=== PATIENT | female | born 1975 | race Caucasian/White ===

== ENCOUNTER 2017-03-08 09:41 | Emergency (ER) | payer MEDICAID ==
[2017-03-08 09:48] VITALS: BP 92/63; PULSE 72; RESP 16; TEMP 97.7; O2SAT 99
--- NOTE | 2017-03-08 09:59 | EDPHY ---
H & P Time Seen by Provider: 03/08/17 09:50 HPI/ROS: Chief complaint. Back pain HPI. 42-year-old female injured her low back doing Pilates exercises 2 weeks ago. She has continued to have some low back pain. Initially she felt it was a rip or a pull. She then reaggravated at about 1 week ago when she lunged forward to keep a friend from tripping and falling. She has seen her PCP for this. She has been using ibuprofen. She really has minimal symptoms when she is standing but is worse with twisting and bending. She feels that gradually her tightness is worsening and she is getting some spasms to her low back and pelvic area. She has no radiation to her legs. No bowel or bladder symptoms. No leg weakness. No similar symptoms previously. ROS Constitutional. no fever/chills, no weakness Eyes. no problems with vision ENT. no sore throat, no nasal drainage Cardiovascular. no chest pain Respiratory. no shortness of breath, no cough Abdominal. no abdominal pain, no nausea/vomiting, no diarrhea . no problems urinating MS. Low back pain Skin. no rash Lymph. no swollen glands Neuro. no headache, no dizziness, no difficulty walking or with speech Past Medical/Surgical History: Anorexia Social History: Single, nonsmoker, no alcohol Smoking Status: Never smoked Physical Exam: General Appearance: Alert pleasant well-developed female mild distress vital signs stable Eyes: Pupils equal and round no pallor or injection. ENT, Mouth: Mucous membranes are moist. Respiratory: There are no retractions, lungs are clear to auscultation. Cardiovascular: Regular rate and rhythm. Gastrointestinal: Abdomen is soft and nontender, no masses, bowel sounds normal. Neurological: Awake and alert, sensory and motor exams grossly normal. Straight leg raising positive at 30 degrees on each leg. Reflexes are symmetrical. Great toe strength is normal. Normal sensation Skin: Warm and dry, no rashes. Musculoskeletal: Neck is supple nontender. Diffuse tenderness across the mid lumbar area. No particular tenderness over the lumbar spine. Extremities symmetrical, full range of motion. Psychiatric: Patient is oriented X 3, there is no agitation. Constitutional: Initial Vital Signs Temperature (C) 36.5 C 03/08/17 09:45 Heart Rate 72 03/08/17 09:45 Respiratory Rate 16 03/08/17 09:45 Blood Pressure 92/63 L 03/08/17 09:45 O2 Sat (%) 99 03/08/17 09:45 O2 Delivery Mode Room Air Allergies/Adverse Reactions: Penicillins Allergy (Verified 03/08/17 09:43) Sulfa (Sulfonamide Antibiotics) Allergy (Verified 03/08/17 09:43) Home Medications: Medication Instructions Recorded CYCLOBENZAPRINE HCL [Flexeril] 5 mg PO TIDPRN PRN #14 tab 03/08/17 Klonomaricruz 03/08/17 Medical Decision Making ED Course/Re-evaluation: The patient and I discussed physical exam, treatment plan including criteria for return importance of follow-up and further evaluation. She expresses understanding and agreement Differential Diagnosis: This appears to be muscular in etiology. I considered fracture, dislocation. She has however had no trauma other than stretching as a cause. I think it unlikely she has a fracture. I have also considered herniated disc though she has no radicular or bowel or bladder symptoms. Departure - Departure Disposition: Home, Routine, Self-Care Clinical Impression: Low back pain Qualifiers: Chronicity: acute Back pain laterality: bilateral Sciatica presence: without sciatica Qualified Code(s): M54.5 - Low back pain Condition: Good Instructions: Low Back Strain (ED), Lower Back Exercises (ED) Additional Instructions: Ibuprofen 600 mg every 6 hours for discomfort. Flexeril as muscle relaxer. May try lidocaine or capsascian patches from the grocery store to help with low back pain. Gentle stretching and activity. Call [facility] to see if you may be seen as a patient and otherwise they may give you a recommendation of physical therapy that takes Medicaid-- . Return for leg weakness, bowel or bladder symptoms. Recheck in 3-4 days if not improving Referrals: Gabriella Nevarez MD [Primary Care Provider] - 3-4 days, if not improved Prescriptions: CYCLOBENZAPRINE HCL [Flexeril] 5 mg PO TIDPRN PRN #14 tab PRN Reason: Spasms
== END 2017-03-08 10:32 | disposition home or self-care (01) ==
DX: S39.92XA Unspecified injury of lower back, initial encounter (principal); W01.0XXA Fall on same level from slipping, tripping and stumbling without subsequent striking against object, initial encounter

== ENCOUNTER 2017-04-02 15:40 | Emergency (ER) | payer MEDICAID ==
[2017-04-02 15:46] VITALS: O2SAT 98
--- NOTE | 2017-04-02 15:57 | EDPHY ---
H & P Stated Complaint: seeing pt for back pain/not better Time Seen by Provider: 04/02/17 15:57 - Personal History LMP (Females 10-55): 15-21 Days Ago Current Tetanus/Diphtheria Vaccine: Yes - Medical/Surgical History Hx Asthma: No Hx Chronic Respiratory Disease: No Hx Diabetes: No Hx Cardiac Disease: No Hx Renal Disease: No Hx Cirrhosis: No Hx Alcoholism: No Hx HIV/AIDS: No Hx Splenectomy or Spleen Trauma: No Other PMH: recovering from anorexia. t11 old injury - Social History Smoking Status: Never smoked Constitutional: Initial Vital Signs Temperature (C) 36.7 C 04/02/17 15:43 Heart Rate 74 04/02/17 15:43 Respiratory Rate 17 04/02/17 15:43 Blood Pressure 93/59 L 04/02/17 15:43 O2 Sat (%) 98 04/02/17 15:43 O2 Delivery Mode Room Air Allergies/Adverse Reactions: Penicillins Allergy (Verified 04/02/17 15:42) Sulfa (Sulfonamide Antibiotics) Allergy (Verified 04/02/17 15:42) Home Medications: Medication Instructions Recorded Klonopin 03/08/17 Hydrocodone/APAP 5/325 [[place] 1 - 2 each PO Q4-6PRN PRN #20 tab 04/02/17 5/325] Medical Decision Making - Diagnostics Imaging Results: Imaging Impressions Lumbar Spine MRI 04/02/17 16:03 Impression: Mild chronic anterior wedge compression fracture of T12. Otherwise, normal lumbar spine MRI. Results called and discussed with Shaq Thomas MD on April 02, 2017 at 1744 hours. Pelvis MRI 04/02/17 16:04 Impression: 1. Mild strain or tendinopathy left common hamstring tendon origin at the ischial tuberosity without attenuation. 2. Incidental 9 mm Bartholin's gland cyst on the right. Results called and discussed with Shaq Thomas MD on April 02, 2017 at 1752 hours. Imaging: Discussed imaging studies w/ call center receptionist Radiologist ED Course/Re-evaluation: CHIEF COMPLAINT: Back pain HISTORY OF PRESENT ILLNESS: This patient is a 42 year old female complaining of unresolved back pain secondary to a fall trail running two or three weeks ago. She states she was evaluated at that time, and has followed up with physical therapy. She states she has had several episodes of intense pain accompanied by flushed face and nausea. She states her physical therapist recommended she follow up to the emergency department should this occur again, with concern for neurologic involvement. She reports the pain is localized to her left lower back around her SI joint, radiating to her pelvic floor. She rates severity as 8/10 currently. She states she has taken her anxiety medication and Ibuprofen to control pain. She denies fever, nausea, vomiting, incontinence, or other associated symptoms. REVIEW OF SYSTEMS: A 10 point review of systems was performed and is negative with the exception of the elements mentioned in the history of present illness. PHYSICAL EXAM: HR, BP, O2 Sat, RR. Temp noted General Appearance: Alert, well hydrated, appropriate, and non-toxic appearing. Head: Atraumatic without scalp tenderness or obvious injury Eyes: Pupils equal, round, reactive to light and accommodation, EOMI, no trauma , no injection. Throat: Mucus membranes moist. Neck: Supple, nontender Respiratory: No retractions, no distress, no wheezes, and no accessory muscle use. Lungs are clear to auscultation bilaterally. Cardiovascular: Regular rate and rhythm. Good capillary refill all extremities. Gastrointestinal: Abdomen is soft, nontender, non-distended, no masses, no rebound, no guarding, no peritoneal signs. Musculoskeletal: Tenderness to left SI joint. Normal active ROM of all extremities, atraumatic. Neurological: Alert, appropriate, and interactive. The patient has normal DTRs and non-focal cranial nerves, motor, sensory, and cerebellar exam. Skin: No rashes, good turgor, no nodules on palpation. Past medical history: T11 injury. History of anorexia. Past surgical history: Noncontributory Family history: Noncontributory Social history: Lives in [place] Past medical records reviewed including emergency department visit 03/08/17 for back pain. DIFFERENTIAL DIAGNOSIS: The differential diagnosis for the patient's back pain included but was not limited to musculoskeletal pain, epidural abscess, herniated disk, spinal fracture, and intra-abdominal causes including urinary system. MEDICAL DECISION MAKING: This patient is a 42 year old female presenting with two week history of left- sided back pain. Offered pain management, patient prefers not to use narcotic pain medications. Plan for non-contrast MRI lumbosacral area to assess post-traumatic back pain. 17:[address] Hanson, radiologist. MRI negative for acute processes. Reassessed patient. Plan to discharge home in good condition with referral to neurosurgery and prescription for L[place] for pain management. The patient will continue to follow up with physical therapy. Answered patient questions. She is comfortable with this plan. Departure - Departure Disposition: Home, Routine, Self-Care Clinical Impression: Sacroiliac pain Condition: Good Instructions: Acute Low Back Pain (ED), Back Pain (ED) Additional Instructions: 1. Continue to follow up with physical therapy. 2. We have referred you to our neurosurgeon personnel representative. Follow up with neurosurgery for symptoms unresolved or continued concerns. 3. You may take [place] as prescribed as needed for pain relief. You may also continue to take Ibuprofen as directed on the packaging. 3. Return to the Emergency Department if you develop weakness, numbness, or tingling in your legs, trouble controlling your bladder or bowels, or other worsening of condition. Referrals: Gabriella Nevarez MD [Primary Care Provider] - As per Instructions Maria R Oconnor DO [Doctor of Osteopathy] - As per Instructions Prescriptions: Hydrocodone/APAP 5/325 [[place] 5/325] 1 - 2 each PO Q4-6PRN PRN #20 tab PRN Reason: Pain, Moderate Report Scribed for: Shaq Thomas Report Scribed by: Pauline Wahl Date of Report: 04/02/17 Time of Report: 16:51
[2017-04-02 18:08] VITALS: BP 129/74; PULSE 80; RESP 14; TEMP 98.4
== END 2017-04-02 18:08 | disposition home or self-care (01) ==
DX: M53.3 Sacrococcygeal disorders, not elsewhere classified (principal)